=== PATIENT | female | born 1990 | race Caucasian/White ===

== ENCOUNTER 2022-09-29 12:46 | Emergency (ER) | payer OTHER ==
[~2022-09-29] VITALS: Ht 172.7 cm; Wt 121.6 kg
[2022-09-29] MEDS ORDERED: Prednisone20 MG PO (14:12)
[2022-09-29] MEDS ORDERED: EPIPEN 2-P0.3 MG/0.1 IJ (14:13)
== END 2022-09-29 14:30 | disposition home or self-care (01) ==
LOC: ER 12:46
DX: T78.1XXA Other adverse food reactions, not elsewhere classified, initial encounter (principal); L50.0 Allergic urticaria; Z88.0 Allergy status to penicillin; Z88.2 Allergy status to sulfonamides; Z88.5 Allergy status to narcotic agent; Z91.013 Allergy to seafood
CPT/HCPCS: 94640; 94664; J1200; J2930; J7030